=== PATIENT | male | born 1980 ===

== ENCOUNTER 2018-10-01 05:21 | Emergency (ER) | payer MEDICAID, OTHER ==
[2018-10-01 05:35] VITALS: BMI 30.6
[2018-10-01 05:37] VITALS: RESP 18
[2018-10-01] MEDS ORDERED: Sodium Chloride 0.9% 1,000 ML IV STA ×2 (05:53→08:14)
--- NOTE | 2018-10-01 05:53 | ED PDOC ---
Arrival/HPI - General Chief Complaint: Abdominal Pain Time Seen by Provider: 10/01/18 05:39 Historian: Patient - History of Present Illness Narrative History of Present Illness (Text): 10/01/18 05:49 38 year old male, whose past medical medical history includes gastroenteritis, presents to the emergency department with abdominal pain and vomiting, for 1 day. Patient states he had been having abdominal pain for about 24 hours, and has eaten little since onset. Patient states 22:00 yesterday he began vomiting. Patient denies any fevers, chills, headache, dizziness, shortness of breath, chest pain, cough, diarrhea, back pain, neck pain, or any other complaints. Time/Duration: 4-6 hours (Vomiting), 24 hours Symptom Onset: Gradual Symptom Course: Unchanged Quality: Cramping Activities at Onset: Light, Sleeping Context: Home Past Medical History - Provider Review Nursing Documentation Reviewed: Yes - Pulmonary Hx Asthma: Yes - Hematological/Oncological Hx Hepatitis B: Yes (as a child) - Musculoskeletal/Rheumatological Hx Falls: No - Psychiatric Hx Depression: No Hx Emotional Abuse: No Hx Physical Abuse: No Hx Substance Use: No - Past Surgical History Past Surgical History: No Previous - Anesthesia Hx Anesthesia: No - Suicidal Assessment Feels Threatened In Home Enviroment: No Family/Social History - Physician Review Nursing Documentation Reviewed: Yes Family/Social History: No Known Family HX Smoking Status: Never Smoked Hx Alcohol Use: No Hx Substance Use: No Allergies/Home Meds Allergies/Adverse Reactions: Allergies Penicillins Allergy (Verified 10/01/18 05:32) ANAPHYLAXIS shellfish derived Allergy (Verified 10/01/18 05:32) ANAPHYLAXIS Home Medications: Home Meds Medication Instructions Recorded Confirmed Albuterol 0.083% [Albuterol 3 ml IH DAILY PRN 10/01/18 10/01/18 Sulfate 3 Ml] Albuterol Sulfate [Ventolin Hfa] 1 puff IH Q4 PRN 10/01/18 10/01/18 Montelukast [Singulair] 10 mg PO DAILY 10/01/18 10/01/18 Review of Systems - Physician Review All systems were reviewed & negative as marked: Yes - Review of Systems Constitutional: absent: Fevers, Night Sweats Respiratory: absent: SOB, Cough Cardiovascular: absent: Chest Pain Gastrointestinal: Abdominal Pain, Nausea, Vomiting. absent: Diarrhea Musculoskeletal: absent: Back Pain, Neck Pain Neurological: absent: Headache, Dizziness Physical Exam Vital Signs Reviewed: Yes Vital Signs Temp Pulse Resp BP Pulse Ox 10/01/18 05:35 98.2 F 90 18 130/85 95 Temperature: Afebrile Blood Pressure: Normal Pulse: Regular Respiratory Rate: Normal Appearance: Positive for: Well-Appearing, Non-Toxic, Comfortable Pain Distress: None Mental Status: Positive for: Alert and Oriented X 3 - Systems Exam Head: Present: Atraumatic, Normocephalic Pupils: Present: PERRL Extroacular Muscles: Present: EOMI Conjunctiva: Present: Normal Mouth: Present: Moist Mucous Membranes Neck: Present: Normal Range of Motion Respiratory/Chest: Present: Clear to Auscultation, Good Air Exchange. No: Respiratory Distress, Accessory Muscle Use Cardiovascular: Present: Regular Rate and Rhythm, Normal S1, S2. No: Murmurs Abdomen: Present: Tenderness (to the mid and lower abdomen ), Normal Bowel Sounds. No: Distention, Peritoneal Signs, Rebound, Hernias Back: Present: Normal Inspection Upper Extremity: Present: Normal Inspection. No: Cyanosis, Edema Lower Extremity: Present: Normal Inspection. No: Edema Neurological: Present: GCS=15, CN II-XII Intact, Speech Normal, Motor Func Grossly Intact, Normal Sensory Function Skin: Present: Warm, Dry, Normal Color. No: Rashes Psychiatric: Present: Alert, Oriented x 3, Normal Insight, Normal Concentration Medical Decision Making ED Course and Treatment: 10/01/18 05:55 Impression: 38 year old male presents with abdominal pain and vomiting Plan: -- EKG -- Protonix -- Toradol -- Zofran -- Reassess and disposition Prior Visits: Notes and results from previous visits were reviewed Progress Notes: EKG Reviewed by me, shows: Normal sinus rhythm @ 89bpm Normal EKG 10/01/18 07:00 Case endorsed to /pending CT Abd/Pelvis/reassess/final disposition - Scribe Statement The provider has reviewed the documentation as recorded by the Pavelibzena Franco Provider Scribe Attestation: All medical record entries made by the Scribe were at my direction and personally dictated by me. I have reviewed the chart and agree that the record accurately reflects my personal performance of the history, physical exam, medical decision making, and the department course for this patient. I have also personally directed, reviewed, and agree with the discharge instructions and disposition. Disposition/Present on Arrival - Present on Arrival Any Indicators Present on Arrival: No History Surgical Site Infection Following: None - Disposition Have Diagnosis and Disposition been Completed?: No Diagnosis: Abdominal pain, Vomiting Disposition Time: 07:00 Patient Problems: Current Active Problems Problem Status Onset Abdominal pain Acute Vomiting Acute Condition: STABLE Referrals: María Gottlieb DO [Primary Care Provider] - Follow up with primary Forms: [facility] [place] ([place])
[2018-10-01 06:15] LABS: HEMOGLOBIN 15.9 g/dL (14.0-18.0); MEAN CORPUSCULAR HEMOGLOBIN 28.4 pg (25.0-35.0); MEAN CORPUSCULAR HGB CONC 33.4 g/dl (31.0-37.0); RBC 5.6 10^6/uL (3.5-6.1); RED CELL DISTRIBUTION WIDTH 13.3 % (11.5-14.5); WHITE BLOOD COUNT 11.7 10^3/uL (4.5-11.0)
[2018-10-01 06:22] LABS: ALB/GLOB RATIO 1.2 (1.1-1.8); ALBUMIN 4.5 g/dL (3.0-4.8); ALT/SGPT 60 U/L (7-56); AST/SGOT 42 U/L (17-59); BLOOD UREA NITROGEN 14 mg/dL (7-21); CALCIUM 9.5 mg/dL (8.4-10.5); GFR NON-AFRICAN AMERICAN > 60; LIPASE 45 U/L (23-300)
[2018-10-01] MEDS ORDERED: Iohexol 350 MG/100 ML VIAL ONE (06:40)
[2018-10-01 06:49] LABS: URINE BILIRUBIN NEGATIVE (NEGATIVE); URINE BLOOD NEGATIVE (NEGATIVE); URINE GLUCOSE (UA) NEGATIVE (NEGATIVE); URINE LEUKOCYTE ESTERASE NEGATIVE Leu/uL (NEGATIVE); URINE PROTEIN NEGATIVE mg/dL (<30 mg/dL); URINE UROBILINOGEN 0.2 E.U./dL (<1 E.U./dL)
[2018-10-01 06:53] LABS: URINE APPEARANCE CLEAR (CLEAR); URINE COLOR YELLOW (YELLOW)
--- NOTE | 2018-10-01 07:27 | ED PDOC ---
Physical Exam Vital Signs Reviewed: Yes Vital Signs Temp Pulse Resp BP Pulse Ox 10/01/18 05:35 98.2 F 90 18 130/85 95 Temperature: Afebrile Blood Pressure: Normal Pulse: Regular Respiratory Rate: Normal Appearance: Positive for: Well-Appearing, Non-Toxic, Comfortable Pain Distress: None Mental Status: Positive for: Alert and Oriented X 3 Medical Decision Making ED Course and Treatment: 10/01/18 07:23 Signed out to me by Dr. Hartman pending CT, reassessment, and disposition. 10/01/18 07:36 Reassessed patient and discussed CT results. Patient is not vomiting in the emergency department and is willing to try the PO challenge. 10/01/18 08:14 Reassessed patient who is now vomiting, failed PO challenge, will administer more fluids and zofran. 10/01/18 09:15 On reassessment Patient is still not feeling well. will discuss case with the hospitalist. 10/01/18 09:39 Reassessed patient who is still vomiting, feels like there is a "pushing" pain in his belly, I will administer Bentyl. Patient has a history of gastritis, mother states he was prescribed omeprazole, but he was unable to get it due to problems with his insurance. 10/01/18 10:37 On reassessment patient feels better, is no longer vomiting, will discharge home with omeprazole. marble worker came and spoke to the family, sates they have to go to medicaid office and apply for the benefits. - Lab Interpretations Lab Results: Total Bilirubin 0.8 mg/dL (0.2-1.3) 10/01/18 05:50 AST 42 U/L (17-59) 10/01/18 05:50 ALT 60 U/L (7-56) H 10/01/18 05:50 Alkaline Phosphatase 144 U/L (38-126) H 10/01/18 05:50 Total Protein 8.2 g/dL (5.8-8.3) 10/01/18 05:50 Albumin 4.5 g/dL (3.0-4.8) 10/01/18 05:50 Globulin 3.7 gm/dL 10/01/18 05:50 Albumin/Globulin Ratio 1.2 (1.1-1.8) 10/01/18 05:50 Lipase 45 U/L (23-300) 10/01/18 05:50 Urine Color Yellow (YELLOW) 10/01/18 05:35 Urine Appearance Clear (CLEAR) 10/01/18 05:35 Urine pH 6.0 (4.7-8.0) 10/01/18 05:35 Ur Specific Carrier >= 1.030 (1.005-1.035) 10/01/18 05:35 Urine Protein Negative mg/dL (<30 mg/dL) 10/01/18 05:35 Urine Glucose (UA) Negative mg/dL (NEGATIVE) 10/01/18 05:35 Urine Ketones Negative mg/dL (NEGATIVE) 10/01/18 05:35 Urine Blood Negative (NEGATIVE) 10/01/18 05:35 Urine Nitrate Negative (NEGATIVE) 10/01/18 05:35 Urine Bilirubin Negative (NEGATIVE) 10/01/18 05:35 Urine Urobilinogen 0.2 E.U./dL (<1 E.U./dL) 10/01/18 05:35 Ur Leukocyte Esterase Negative Anthnoy/uL (NEGATIVE) 10/01/18 05:35 - RAD Interpretation Narrative RAD Interpretations (Text): 10/01/18 07:26 CT of abdomen and Pelvis reviewed by Jed Springer M.D, shows: IMPRESSION: Fluid-filled stomach. Fluid-filled colon. Ileus versus developing enteritis. Mild changes of central mesenteric panniculitis. No evidence of acute abdominal or pelvic pathology. 10/01/18 08:54 CT of Abdomen and Pelvis reviewed by Jonathan Brush MD, shows: IMPRESSION: No acute or significant findings related to/ accounting for the clinical presentation. Additional benign and/or incidental findings described above. No significant interval change compared to the prior examination(s). Radiology Orders: 10/01/18 06:33 ABD & PELVIS IV CONTRAST ONLY [CT] Stat [employer] Continuous Process: Radiologist - Medication Orders Current Medication Orders: Discontinued Medications Sodium Chloride (Sodium Chloride 0.9%) 1,000 mls @ 999 mls/hr IV .Q1H1M STA Stop: 10/01/18 06:53 Last Admin: 10/01/18 05:50 Dose: 999 mls/hr eMAR Start Stop Document 10/01/18 05:50 RD (Rec: 10/01/18 05:57 RD [id number]) Intravenous Solution Start Date 10/01/18 Start Time 05:50 End Date 10/01/18 End time 06:50 Total Infusion Time 60 Ketorolac Tromethamine (Toradol) 30 mg IVP ONCE ONE Stop: 10/01/18 05:54 Last Admin: 10/01/18 06:02 Dose: 30 mg MAR Pain Assessment Document 10/01/18 06:02 RD (Rec: 10/01/18 06:06 RD [id number]) Pain Reassessment Is this a pain reassessment? No Sleep Is patient sleeping during reassessment? No Presence of Pain Presence of Pain Yes IVP Administration Document 10/01/18 06:02 RD (Rec: 10/01/18 06:06 RD [id number]) Charges for Administration # of IVP Administrations 1 Ondansetron HCl (Zofran Inj) 4 mg IVP ONCE ONE Stop: 10/01/18 05:54 Last Admin: 10/01/18 06:04 Dose: 4 mg IVP Administration Document 10/01/18 06:04 RD (Rec: 10/01/18 06:07 RD [id number]) Charges for Administration # of IVP Administrations 1 Pantoprazole Sodium (Protonix Inj) 40 mg IVP ONCE STA Stop: 10/01/18 05:54 Last Admin: 10/01/18 06:00 Dose: 40 mg IVP Administration Document 10/01/18 06:00 RD (Rec: 10/01/18 06:06 RD [id number]) Charges for Administration # of IVP Administrations 1 - Scribe Statement The provider has reviewed the documentation as recorded by the Alanna Lamas Provider Scribe Attestation: All medical record entries made by the Scribzena were at my direction and personally dictated by me. I have reviewed the chart and agree that the record accurately reflects my personal performance of the history, physical exam, medical decision making, and the department course for this patient. I have also personally directed, reviewed, and agree with the discharge instructions and disposition. Disposition/Present on Arrival - Present on Arrival Any Indicators Present on Arrival: No History of DVT/PE: No History of Uncontrolled Diabetes: No Urinary Catheter: No History of Decub. Ulcer: No History Surgical Site Infection Following: None - Disposition Have Diagnosis and Disposition been Completed?: Yes Diagnosis: Abdominal pain, Vomiting Disposition: HOME/ ROUTINE Disposition Time: 10:44 Patient Plan: Discharge Patient Problems: Current Active Problems Problem Status Onset Abdominal pain Acute Vomiting Acute Condition: IMPROVED Discharge Instructions (ExitCare): Acute Abdomen (Belly Pain), Adult (DC), Nausea and Vomiting, Adult (DC) Additional Instructions: OTILIA MCKOY, thank you for letting us take care of you today. Your provider was Yamila Bal MD and you were treated for vomitting abd pain. The emergency medical care you received today was directed at your acute symptoms. If you were prescribed any medication, please fill it and take as directed. It may take several days for your symptoms to resolve. Return to the Emergency Department if your symptoms worsen, do not improve, or if you have any other problems. Please contact your doctor in 1-2 days. Bring any paperwork you were given at discharge with you along with any medications you are taking to your follow up visit. Our treatment cannot replace ongoing medical care by a primary care provider outside of the emergency department. Thank you for allowing the [facility] team to be part of your care today. Prescriptions: Omeprazole 20 mg PO DAILY #30 capsule. Referrals: María Gottlieb V, [Primary Care Provider] - Follow up with primary Forms: [facility] ([place])
--- NOTE | 2018-10-01 08:42 | CT ---
Date of service: 10/01/2018 PROCEDURE: CT Abdomen and Pelvis with contrast HISTORY: Vomiting and abdominal pain COMPARISON: 08/29/2013 CT abdomen and pelvis. TECHNIQUE: Intravenous contrast dose: 100 cc Omnipaque 350. Radiation dose: Total exam DLP = 523.32 mGy-cm. This CT exam was performed using one or more of the following dose reduction techniques: Automated exposure control, adjustment of the mA and/or kV according to patient size, and/or use of iterative reconstruction technique. FINDINGS: LOWER THORAX: Unremarkable. LIVER: Hepatic steatosis. No focal masses. No intrahepatic bile duct dilatation or perihepatic ascites. GALLBLADDER AND BILE DUCTS: Unremarkable. PANCREAS: Unremarkable. No gross lesion or ductal dilatation. SPLEEN: Unremarkable. ADRENALS: Unremarkable. No mass. KIDNEYS AND URETERS: Unremarkable. No hydronephrosis. No solid mass. VASCULATURE: Unremarkable. No aortic aneurysm. No atherosclerotic calcification or mural plaque present. BOWEL: Unremarkable. No obstruction. No gross mural thickening. APPENDIX: A normal appendix is visualized in it's entirety. PERITONEUM: Unremarkable. No free fluid. No free air. LYMPH NODES: Unremarkable. No enlarged lymph nodes. BLADDER: Unremarkable. REPRODUCTIVE: Unremarkable. BONES: No acute fracture. OTHER FINDINGS: None. IMPRESSION: No acute or significant findings related to/ accounting for the clinical presentation. Additional benign and/or incidental findings described above. No significant interval change compared to the prior examination(s). Concordant results (preliminary interpretation) provided by [employer]. Procedure Completed: 06:47. Preliminary Report: Dictated and Authenticated: 07:25. Final Interpretation: 08:38.
--- NOTE | 2018-10-01 10:09 | CARD ---
APPROVED REPORT Date of service: 10/01/2018 EKG Measurement Heart [id number] <Conclusion> Normal sinus rhythm Normal ECG
[2018-10-01 10:54] VITALS: BP 155/86; PULSE 100; TEMP 98; O2SAT 98
== END 2018-10-01 10:54 | disposition home or self-care (01) ==
LOC: ED 05:21
DX: R11.10 Vomiting, unspecified (principal); R10.9 Unspecified abdominal pain
CPT/HCPCS: 74177; 80053; 81003; 83690; 85027; 93005; 96361; 96374; 96375; 96376; 99284; C9113; J1885; J2405; J7030; Q9967